=== PATIENT | female | born 1955 | race Caucasian/White ===

== ENCOUNTER 2018-12-03 12:14 | Outpatient (CLI) | payer MEDICARE, OTHER | END 2018-12-03 23:59 | disposition home or self-care (01) | LOC: LAB.N 12:14 | PROVIDERS: ATTEND Internal Medicine Cardiovascular Disease | DX: E11.29 Type 2 diabetes mellitus with other diabetic kidney complication (principal); R80.9 Proteinuria, unspecified; Z79.4 Long term (current) use of insulin | CPT/HCPCS: 36415; 82985 ==

== ENCOUNTER 2018-12-04 09:34 | Outpatient (CLI) | payer MEDICARE, OTHER ==
[2018-12-04 12:50] LABS: BUN - BLOOD UREA NITROGEN 27 mg/dL (6-20); CALCIUM 9.5 mg/dL (8.5-10.3); CARBON DIOXIDE - CO2 21 mmol/L (21-32); CHLORIDE 104 mmol/L (101-111); CHOL/HDL RATIO 6.1 (<4.4); CHOLESTEROL 212 mg/dL; CREATININE 0.8 mg/dL (0.4-1.0); GFR - MDRD 72 (>89); GLUCOSE 234 mg/dL (70-100); HDL CHOLESTEROL 35 mg/dL; SODIUM 140 mmol/L (135-145)
[2018-12-04 13:13] LABS: LDL CHOLESTEROL,DIRECT 114 mg/dL; LDLD/HDL RATIO 3.3 (<4.4)
== END 2018-12-04 23:59 ==
LOC: LAB.N 09:34
PROVIDERS: ATTEND Internal Medicine Cardiovascular Disease
DX: I25.10 Atherosclerotic heart disease of native coronary artery without angina pectoris (principal); R06.09 Other forms of dyspnea
CPT/HCPCS: 36415; 80048; 80061; 83721

== ENCOUNTER 2018-12-25 14:47 | Outpatient (CLI) | payer MEDICARE, OTHER ==
[2018-12-25 17:16] VITALS: BP 120/92
--- NOTE | 2018-12-25 17:16 | SLEEP CARE CONSULTATION ---
Information from patient questionnaire entered by Suzanna Wilkerson. I have reviewed and concur with the information entered by Suzanna Wilkerson. This document represents the service I personally performed and the decisions made by me, Yisel Paredes MD, [facility]. History of Present Illness Reason for Visit: New patient, Previously diagnosed sleep apnea, sleep apnea on CPAP therapy Chief Complaint: reports: Snoring Duration of Symptoms: 6 YEARS Usual bedtime: [id number] Time it takes to fall asleep: 60 minutes Snores at night: Yes Observed to quit breathing while asleep: Yes Sleeps alone due to snoring: No Number of times waking at night: 2-3 Reasons for waking at night: reports: Choking, Gasping for air, Bathroom Toss, Turn, or Twitch while sleeping: Yes Recalls having dreams: Yes Usually gets out of bed at: [id number] Feels refreshed in the morning: Yes Morning headache: Yes Sleepy or fatigued during the day: Yes Ever fallen asleep while driving: No Takes day naps: Yes Dreams during day naps: No Prior sleep studies: Yes Year and Where: 2014 [facility] [place], [place] Additional HPI information: I had the pleasure of seeing Mrs. Boles along with her today re garding sleep-disordered breathing. As you know, she is a 63 year old lady who was diagnosed with the central and obstructive sleep apnea-hypopnea at [facility] in [place], [place] in 2014. The AHI was 8.9 and jj oxygen saturation of 90%. She was prescribed a CPAP device set at 6 10 cmH2O. She uses the Respironics DreamStation device sporadically. The compliance data show usage in 33 out of the past 180 nights, averaging 6 hours a night. The residual AHI is 6.2 and average time in large leak per day is 8 minutes. She wears a ResMed AirFit full face mask. She got her supplies from [employer] She finds the treatment slightly beneficial. According to her , she snores lightly without the CPAP. He uses a CPAP as well. CPAP Compliance Data - Data Reviewed with Patient Average duration of nightly device use: 6h 35m Compliance rate %: 20 Current pressure setting (cmH2O): 6-10 Humidity settin Heated hose settin Subjective Initial [place] Sleepiness Scale score: 6 Past Medical History Past Medical History: reports: Diabetes, Arthritis, Asthma, GERD Social History The patient's occupation is retired. Patient is and lives in [place]. Have you smoked in the past 12 months: No Alcohol use: No Caffeine use: No Allergies and Home Medications Drug allergies reviewed: Yes Home medication list reviewed: Yes Review of Systems Weight loss over past 5 years: 35 Cardiovascular: reports: high blood pressure Respiratory: denies: shortness of breath, wheeze, sputum production, chronic cough, other Gastrointestinal: reports: heartburn Urinary: reports: incontinence Neurological: denies: headaches, seizure, head trauma, disorientation, speech dysfunction, gait or balance problems, fainting or unconsciousness, other Psychiatric: denies: Attention Deficit Hyperactivity, anxiety, depression, mood disorder, claustrophobia, other Ear/Nose/Throat: reports: wisdom teeth removed Endocrine: denies: thyroid disease, history of goiter, sluggishness, too hot or cold, excessive thirst, increased appetite, increased urination, unexplained weakness, other Musculoskeletal: reports: joint pain Immunologic: denies: sneezing, rash, itching, allergies to food or environment, other Physical Exam Vital signs obtained and entered by: Dr. Paredes Blood Pressure: 120/92 Cuff size: regular Heart Rate: 102 O2 Saturation: 95 Height: 5 ft 2 in Weight: 170 lb Body Mass Index: 31.1 BMI Classification: Obesity Class 1 Neck circumference: 14 Mood/affect: normal HEENT: No craniofacial malformation Nostrils: patent to airflow Turbinates: normal Septum: midline Mouth and throat: narrow oropharynx Soft palate: long Hard palate: normal Uvula: normal Uvula visualization: 25% Mallampati Class III Tongue: normal in size Tonsils: small Chin and jaw: normal size and position Neck: normal w/o lymphadenopathy or thyromegaly Heart: regular rate and rhythm (tachycardic) Lungs: clear bilaterally Abdomen: soft, non-tender Extremities: no edema or clubbing Neurologic: intact, no focal deficits Impression and Plan IMPRESSION: 1. Central and Obstructive Sleep Apnea-Hypopnea Syndrome, mild, with no hypoxemia. The patient has not been compliant with the treatment, mainly because of lack of supplies. There is no predisposing factor for central sleep apnea. The patient would like continue using CPAP. She is now on Medicare and will need the diagnosis reestablished because she has not been compliant. I will order another diagnostic in-laboratory polysomnography to confirm the diagnosis and its severity. The sleep-disordered breathing might also have improved because she lost almost 30 lbs since her sleep study in [place]. Plan: 1. Repeat in-laboratory polysomnography. The patient was instructed to not use her CPAP one night prior to the sleep study. 2. Attempt to lose weight. 3. Return for follow up after the sleep study. I spent 100% of this 20 minute visit face to face with the patient with greater than 50% of this was spent time counseling the patient and coordination of care.
== END 2018-12-25 14:48 | disposition home or self-care (01) ==
LOC: SC 14:47
PROVIDERS: ATTEND Internal Medicine Pulmonary Disease
DX: G47.33 Obstructive sleep apnea (adult) (pediatric) (principal); G47.61 Periodic limb movement disorder; E66.9 Obesity, unspecified; Z68.31 Body mass index [BMI] 31.0-31.9, adult
CPT/HCPCS: 99203; G0463; 99212

== ENCOUNTER 2019-02-03 19:35 | Outpatient (CLI) | payer MEDICARE, OTHER | END 2019-02-03 19:36 | disposition home or self-care (01) | LOC: SC 19:35 | PROVIDERS: ATTEND Internal Medicine Pulmonary Disease | DX: G47.33 Obstructive sleep apnea (adult) (pediatric) (principal); G47.61 Periodic limb movement disorder | CPT/HCPCS: 95810 ==

== ENCOUNTER 2019-02-26 11:19 | Outpatient (CLI) | payer MEDICARE, OTHER ==
--- NOTE | 2019-02-26 12:21 | SLEEP CARE CONSULTATION ---
Information from patient questionnaire entered by Suzanna Wilkerson. I have reviewed and concur with the information entered by Suzanna Wilkerson. This document represents the service I personally performed and the decisions made by me, Yisel Paredes MD, [facility]. History of Present Illness Previous diagnosis: Mild, Obstructive Sleep Apnea-Hypopnea Syndrome AHI: 9.0 Reason for follow up: with sleep study Equipment type: CPAP Mask style: Full face Prior sleep studies: Yes HPI additional information: HPI: Returned with her for follow up of the sleep study she had on 02/03/2019. The polysomnography showed that the patient had reduced sleep efficiency due to a prolonged awakening in the second half of the night. The sleep architecture was abnormal for sleep fragmentation and reduced amount of time spent in slow wave sleep (N3). Respiratory monitoring showed mild obstructive sleep apnea-hypopnea (AHI = 9.0) associated with frequent arousals, oxyhemoglobin desaturation and mild hypoxia (jj oxygen saturation of 87%). The respiratory events occurred almost exclusively during supine sleep (supine AHI = 18.9; non-supine = 1.06). Snore was light in intensity. There was moderate periodic leg movement of sleep contributing to the sleep fragmentation. Cardiac rhythm was normal sinus rhythm without significant arrhythmia. No abnormal behavior (parasomnia) observed during the night. The patient was informed of these findings. I explained to her that she still has mild obstructive sleep apnea-hypopnea but only when she sleeps on her back. The patient says that she does not sleep on her back at home. She has not been using her CPAP much at home because it gives her an error message regarding the memory card. CPAP Compliance Data - Data Reviewed with Patient Average duration of nightly device use: 5h 9m Compliance rate %: 9.2 Current pressure setting (cmH2O): 6-10 Humidity settin Heated hose settin Average residual AHI: 4.9 Average large leak: 1m 20s Subjective Patient concerns: reports: air blowing in eyes, nasal congestion, dry mouth, nose, throat Initial [place] Sleepiness Scale score: 6 Current [place] Sleepiness Scale score: 2 Allergies and Home Medications Drug allergies reviewed: Yes Home medication list reviewed: Yes Review of Systems Review of systems same as previous: Yes Physical Exam Weight: 165 lb Weight change since last visit: -5 Impression and Plan IMPRESSION: 1. Obstructive Sleep Apnea-Hypopnea Syndrome, mild, and positional. Because she only sleeps on her side and prone at home, she does not have to use the CPAP. She also has lost some weight. PLAN: 1. Use CPAP as needed. 2. Attempt to lose more weight. 3. Avoid sleeping supine. If unable, she needs to return for reevaluation. She also should inform her anesthesiologists and surgeons that she will have obstructive sleep apnea-hypopnea when put in supine position. She should have her CPAP ready with her in those situations. 4. Return for follow up on as needed basis. I spent 100% of this visit face to face with the patient with greater than 50% of this was spent time counseling the patient and coordination of care.
== END 2019-02-26 11:20 | disposition home or self-care (01) ==
LOC: SC 11:19
PROVIDERS: ATTEND Internal Medicine Pulmonary Disease
DX: G47.33 Obstructive sleep apnea (adult) (pediatric) (principal)
CPT/HCPCS: 99213; G0463; 99212

== ENCOUNTER 2019-09-17 12:40 | Outpatient (CLI) | payer MEDICARE, OTHER ==
--- NOTE | 2019-09-17 13:39 | DEXA Report ---
Reason: POST MENOPAUSAL Procedure Date: 09/17/2019 Accession Number: [id number] / [id number] Procedure: DEX - Dexa Spine and/or Hip CPT Code: Final Report FULL RESULT: PROCEDURE: Dexa Spine and/or Hip INDICATIONS: POST MENOPAUSAL TECHNIQUE: Dual energy x-ray absorptiometry (DXA) was performed on a Ideagen System. Regions measured are the AP Spine, femoral neck, and if needed forearm. COMPARISON: None. FINDINGS: Lumbar Spine: Bone Mineral Density 1.143 g/cm/cm,T score 2.0, nornal [place] Hip: Bone Mineral Density 1.042 g/cm/cm,T score 0.3, normal Left Femoral Neck: Bone Mineral Density 0.822 g/cm/cm, T score -1.6, osteopenia (T score greater or equal to -1.0: NORMAL) (T score from -1.1 to -2.4: OSTEOPENIA) (T score less than or equal to -2.5 to: OSTEOPOROSIS) Impression: Osteopenia in the left femoral neck. Patients with diagnosis of osteoporosis or osteopenia should have regular bone mineral density assessment. For those eligible for Medicare, routine testing is allowed once every 2 years. Testing frequency can be increased for patients who have rapidly progressing disease or for those who are receiving medical therapy to restore bone mass. Reviewed by: Mariluz Alanis MD on 09/17/2019 1:37 PM PDT Approved by: Mariluz Alanis MD on 09/17/2019 1:37 PM PDT Station ID: [id number]
== END 2019-09-17 12:41 | disposition home or self-care (01) ==
LOC: DI 12:40
PROVIDERS: ATTEND Nurse Practitioner Family
DX: M85.88 Other specified disorders of bone density and structure, other site (principal)
CPT/HCPCS: 77080

== ENCOUNTER 2019-09-17 12:41 | Outpatient (CLI) | payer MEDICARE, OTHER ==
--- NOTE | 2019-09-18 09:13 | Mammography Report ---
BILATERAL DIGITAL SCREENING MAMMOGRAM 3D/2D: 09/17/2019 CLINICAL: Routine screening. Comparison is made to exams dated: 03/22/2018 mammogram, 02/23/2017 mammogram, 01/01/2016 mammogram, a nd 11/12/2014 mammogram - [facility]. The tissue of both breasts is predominantly f atty. No significant masses, calcifications, or other findings are seen in either breast. There has been no significant interval change. IMPRESSION: NEGATIVE There is no mammographic evidence of malignancy. A 1 year screening mammogram is recommended. This exam was interpreted at Station ID: [id number]. NOTE: For mammograms, a report in lay terms will be sent to the patient. Approximately 15% of breast malignancies will not be visualized mammographically. In the management of a palpable breast mass, a negative mammogram must not discourage biopsy of a clinically suspicious lesion. Electronically Signed By: Jhoan Carmona M.D. ar/[email or web address]:09/17/2019 17:23:18 ACR BI-RADS Category 1: Negative [id number] PARENCHYMAL PATTERN: (F) - The breast(s) demonstrate(s) diffuse fatty replacement. BI-RADS CATEGORY: (1) - 1 RECOMMENDATION: (ANNUAL) - Recommend routine annual screening mammography. [id number] 1 year screening LATERALITY: (B)
== END 2019-09-17 12:42 | disposition home or self-care (01) ==
LOC: DI 12:41
DX: Z12.31 Encounter for screening mammogram for malignant neoplasm of breast (principal)
CPT/HCPCS: 77063; 77067

== ENCOUNTER 2019-11-14 10:45 | Inpatient (IN) | payer MEDICARE, OTHER ==
[2019-11-14 11:50] LABS: BASOPHILS % (AUTO) 0.4 %; EOSINOPHILS % (AUTO) 0.8 %; HGB - HEMOGLOBIN 14.5 g/dL (12.0-16.0); LYMPHOCYTES # (AUTO) 1.3 10^3/uL (1.5-3.5); LYMPHOCYTES % (AUTO) 25.8 %; MEAN CORPUSCULAR HEMOGLOBIN 30.3 pg (27.0-31.0); MEAN CORPUSCULAR HGB CONC 34.3 g/dL (32.0-36.0); MEAN CORPUSCULAR VOLUME 88.3 fL (81.0-99.0); MEAN PLATELET VOLUME 10.4 fL (7.9-10.8); MONOCYTES # (AUTO) 0.3 10^3/uL (0.0-1.0); MONOCYTES % (AUTO) 5.6 %; NEUTROPHILS # (AUTO) 3.2 10^3/uL (1.5-6.6); NEUTROPHILS % (AUTO) 66.6 %; PLT - PLATELET COUNT 188 10^3/uL (130-450); RED BLOOD COUNT 4.79 10^6/uL (4.20-5.40); RED CELL DISTRIBUTION WIDTH 12.2 % (12.0-15.0); WHITE BLOOD COUNT 4.8 x10^3/uL (4.8-10.8)
[2019-11-14] MEDS ORDERED: IOVERSOL 320 100 ML VIAL IVP ONE ×2 (11:54→17:35)
[2019-11-14 11:56] LABS: ALBUMIN 3.9 g/dL (3.2-5.5); CALCIUM 9.5 mg/dL (8.5-10.3); CREATININE 0.8 mg/dL (0.4-1.0); TOTAL PROTEIN 7.7 g/dL (6.7-8.2)
--- NOTE | 2019-11-14 12:06 | ED Physician Documentation ---
PD HPI FOCAL NEURO - Stated complaint Stated Complaint: POSS STROKE - Chief complaint Chief Complaint: Neuro - History obtained from History obtained from: Patient, Family - History of Present Illness Timing - onset: How many hours ago (32) Timing - duration: Hours (32) Timing - details: Abrupt onset Severity of deficit: Moderate Weakness: Face, Arm, Hand, Leg, Left Numbness: Face, Arm, Hand, Leg, Left Associated symptoms: No: Headache, Nausea / vomiting, Seizure, Syncope, Fall, Head injury, Chest pain, Neck pain, Back pain Baseline status: positive: A&OX3, ambulatory, indep Recently seen: Not recently seen - Additional information Additional information: Female presents the emergency department complaint of left-sided weakness for the past 32 hours. Difficulty ambulating secondary to weakness. Feels like she cannot control her left hand. Took aspirin this morning. No history of stroke. No recent illness. No recent trauma. Nothing makes it better or worse Review of Systems Ten Systems: 10 systems reviewed and negative Constitutional: denies: Fever, Chills Ears: denies: Ear pain Nose: denies: Rhinorrhea / runny nose, Congestion Cardiac: denies: Chest pain / pressure Respiratory: denies: Cough GI: denies: Abdominal Pain, Nausea, Vomiting, Diarrhea Skin: denies: Rash Musculoskeletal: denies: Neck pain, Back pain Neurologic: denies: Headache PD PAST MEDICAL HISTORY - Past Medical History Past Medical History: Yes Cardiovascular: Hypertension, High cholesterol Respiratory: Asthma Neuro: Migraines, Peripheral neuropathy Endocrine/Autoimmune: Type 2 diabetes GI: GERD HEENT: None Psych: None Musculoskeletal: Osteoarthritis, Fibromyalgia - Past Surgical History Past Surgical History: Yes Ortho: Carpal Tunnel surgery, Other /[employer]: section - Present Medications Home Medications: Ambulatory Orders Medication Instructions Recorded Confirmed Albuterol Oral Soln 2 mg PO Q6H PRN 11/14/19 11/14/19 Albuterol Sulfate [Proair Hfa 1 - 2 puffs INH Q4H PRN 11/14/19 11/14/19 Inhaler] Aspirin 81 mg PO DAILY 11/14/19 11/14/19 Atorvastatin Calcium [Lipitor] 80 mg PO DAILY 11/14/19 11/14/19 Dulaglutide [Trulicity] 1.5 mg SQ OAW 11/14/19 11/14/19 Empagliflozin [Jardiance] 25 mg PO DAILY 11/14/19 11/14/19 Fenofibrate,Micronized 130 mg PO DAILY 11/14/19 11/14/19 [Fenofibrate] Fluticasone Propionate [Flovent 250 mcg IH BID PRN 11/14/19 11/14/19 Diskus] Gabapentin 100 mg PO DAILY 11/14/19 11/14/19 Gabapentin 300 mg PO DAILY PM 11/14/19 11/14/19 Insulin Regular, Human [Humulin R] 30 units SQ AC 11/14/19 11/14/19 Leflunomide 20 mg PO DAILY 11/14/19 11/14/19 Lisinopril [Prinivil] 10 mg PO DAILY 11/14/19 11/14/19 Montelukast [Singulair] 10 mg PO QPM 11/14/19 11/14/19 Omeprazole 20 mg PO DAILY 11/14/19 11/14/19 Secukinumab [Cosentyx Pen] 150 mg SQ ONCE 11/14/19 11/14/19 metFORMIN [Glucophage] 1,000 mg PO BIDWM 11/14/19 11/14/19 - Allergies Allergies/Adverse Reactions: Allergies Allergy/AdvReac Type Severity Reaction Status Date / Time Sulfa (Sulfonamide Allergy Rash Verified 11/14/19 10:58 Antibiotics) - Social History Does the pt smoke?: No Smoking Status: Never smoker Does the pt drink ETOH?: No Does the pt have substance abuse?: No - Immunizations Immunizations are current?: Yes - POLST Patient has POLST: No PD ED PE NORMAL - Vitals Vital signs reviewed: Yes - General General: Alert and oriented X 3, No acute distress, Well developed/nourished - HEENT HEENT: PERRL, Ears normal, Moist mucous membranes, Pharynx benign - Neck Neck: Supple, no meningeal sign - Cardiac Cardiac: RRR - Respiratory Respiratory: No respiratory distress, Clear bilaterally - Abdomen Abdomen: Soft, Non tender, Non distended - Back Back: No spinal TTP - Derm Derm: Warm and dry - Extremities Extremities: No deformity, No edema - Neuro Neuro: Alert and oriented X 3, it business analyst 2-12 intact - Psych Psych: Normal mood, Normal affect NIHSS - Time Time: 11:20 - Level of Consciousness Level of consciousness: (0) Alert, Keenly responsive LOC Questions: (0) Answers both Q's correct LOC Commands: (0) Performs both correctly - Gaze Best Gaze: (0) Normal - Visual Visual: (0) No loss - Facial Palsy Facial Palsy: (0) Normal, symmetrical movement - Motor Arms (both separate) Motor Arm (right): (0) No drift Motor Arm (left): (1) Drift - Motor Legs (both separate) Motor Leg (right): (0) No drift Motor Leg (left): (2) Some effort against gravity - Limb Ataxia Limb Ataxia: (0) Absent - Sensory Sensory: (1) Hgpm-aa-naccucrw loss - Best Language Best Language: (0) No aphasia - Dysarthria Dysarthria: (1) Scvn-sj-lsduomak dysarthria - Extinction and Inattention (formally neg Extinction and inattention: (0) No abnormality - Total Score/Results Total Score/Result: 5 Results - Vitals Vitals: Vital Signs - 24 hr 11/14/19 11/14/19 11/14/19 10:51 11:09 11:41 Temperature 36.6 C Heart Rate 86 86 86 Respiratory 17 17 25 H Rate Blood Pressure 169/108 H 154/85 H 141/80 H O2 Saturation 98 97 97 11/14/19 11/14/19 12:02 12:53 Temperature Heart Rate 80 84 Respiratory 16 14 Rate Blood Pressure 151/80 H 129/78 O2 Saturation 96 98 Oxygen O2 Source Room air - EKG (time done) 1154 Rate: Rate (enter#) (79) Rhythm: NSR [place]: Normal Intervals: Normal [place] QRS: LVH Ischemia: Normal ST segments - Labs Labs: Laboratory Tests 11/14/19 11/14/19 11/14/19 11:00 11:00 11:40 WBC 4.8 RBC 4.79 Hgb 14.5 Hct 42.3 MCV 88.3 MCH 30.3 MCHC 34.3 RDW 12.2 Plt Count 188 MPV 10.4 Neut # (Auto) 3.2 Lymph # (Auto) 1.3 L [place] # (Auto) 0.3 Eos # (Auto) 0.0 Baso # (Auto) 0.0 Absolute Nucleated RBC 0.00 Nucleated RBC % 0.0 Sodium 135 Potassium 4.1 Chloride 103 Carbon Dioxide 21 Anion Gap 11.0 BUN 18 Creatinine 0.8 Estimated GFR (MDRD) 72 L Glucose 431 H Calcium 9.5 Total Bilirubin 1.0 AST 17 ALT 19 Alkaline Phosphatase 94 Troponin I High Sens 5.5 Total Protein 7.7 Albumin 3.9 Globulin 3.8 Albumin/Globulin Ratio 1.0 Lipase 37 Urine Color Urine Clarity Urine pH Ur Specific [place] Urine Protein Urine Glucose (UA) Urine Ketones Urine Occult Blood Urine Nitrite Urine Bilirubin Urine Urobilinogen Ur Leukocyte Esterase Ur Microscopic Review Urine Culture Comments 11/14/19 12:00 WBC RBC Hgb Hct MCV MCH MCHC RDW Plt Count MPV Neut # (Auto) Lymph # (Auto) [place] # (Auto) Eos # (Auto) Baso # (Auto) Absolute Nucleated RBC Nucleated RBC % Sodium Potassium Chloride Carbon Dioxide Anion Gap BUN Creatinine Estimated GFR (MDRD) Glucose Calcium Total Bilirubin AST ALT Alkaline Phosphatase Troponin I High Sens Total Protein Albumin Globulin Albumin/Globulin Ratio Lipase Urine Color YELLOW Urine Clarity CLEAR Urine pH 5.5 Ur Specific [place] 1.010 Urine Protein TRACE Urine Glucose (UA) >=1000 H Urine Ketones NEGATIVE Urine Occult Blood NEGATIVE Urine Nitrite NEGATIVE Urine Bilirubin NEGATIVE Urine Urobilinogen 0.2 (NORMAL) Ur Leukocyte Esterase NEGATIVE Ur Microscopic Review NOT INDICATED Urine Culture Comments NOT INDICATED - Rads (name of study) angio head Radiology: Prelim report reviewed, EMP read contemporaneously, See rad report angio neck Radiology: Prelim report reviewed, EMP read contemporaneously, See rad report PD MEDICAL DECISION MAKING - ED course Complexity details: reviewed results, re-evaluated patient, considered differential, d/w patient ED course: No acute abnormality on angiogram of the head or neck. Will admit for stroke and further care. Took ASA today. D/w Dr. Valenzuela who accepts. This document was made in part using voice recognition software. While efforts are made to proofread this document, sound alike and grammatical errors may occur. Departure - Departure Disposition: 66 [facility] DC/Xfer Clinical Impression: Stroke Qualifiers: CVA mechanism: unspecified Qualified Code(s): I63.9 - Cerebral infarction, unspecified Condition: Good Discharge Date/Time: 11/14/19 14:14
[2019-11-14 12:19] LABS: BILIRUBIN,URINE NEGATIVE (NEGATIVE); GLUCOSE, URINE (UA) >=1000 mg/dL (NEGATIVE); KETONES,URINE (UA) NEGATIVE (NEGATIVE); LEUKOCYTE ESTERASE, URINE NEGATIVE (NEGATIVE); NITRITE,URINE NEGATIVE (NEGATIVE); OCCULT BLOOD,URINE NEGATIVE (NEGATIVE); PH,URINE 5.5 PH (5.0-7.5); PROTEIN,URINE TRACE mg/dL (NEGATIVE); UROBILINOGEN,URINE 0.2 (NORMAL) E.U./dL (NORMAL)
[2019-11-14 12:20] LABS: CLARITY,URINE CLEAR (CLEAR)
--- NOTE | 2019-11-14 12:44 | CT Report ---
PROCEDURE: ANGIO HEAD W/WO INDICATIONS: L sided facial droop CONTRAST: IV CONTRAST: Optiray 320 ml: 80 PO CONTRAST: *NO PO CONTRAST TECHNIQUE: Precontrast 4.5 mm thick angled axial sections acquired from the foramen magnum to the vertex. Afte r the administration of intravenous contrast, 1 mm thick sections acquired through the [place] of [place] is. Postcontrast 4.5 mm thick sections then re-acquired from the foramen magnum to the vertex. 3-di mensional ngxpzyk-mwehibrea-fewsrzeliw (MIP) and/or volume rendering reformats were acquired of the c entral intracranial vasculature. For radiation dose reduction, the following was used: automated ex posure control, adjustment of mA and/or kV according to patient size. COMPARISON: Correlation is made with the accompanying neck CT angiogram, 11/14/2019 FINDINGS: Image quality: Diagnostic, with note made of motion artifact. Anterior circulation: Intracranial internal carotid arteries are normal in size and flow. The flow within the paired anterior cerebral arteries is normal and symmetric. The flow within the middle cer ebral arteries is normal and symmetric. The anterior communicating artery is seen. No aneurysms are seen. Posterior circulation: Visualized portions of the vertebral arteries demonstrate normal caliber, and join to form a normal appearing basilar artery. Flow within the posterior cerebral arteries is norm al and symmetric. No aneurysms are seen. CSF spaces: Ventricles are normal in size and shape. Basal cisterns are patent. No extra-axial flu id collections. Brain: No midline shift. No intracranial bleeds or masses. Michael-white matter interface appears int act. In this patient with this given history, scrutiny is given to course of the facial nerves, incl uding within the parotid glands. No masses or other cause of facial paralysis is identified. Skull and face: Calvarium and facial bones appear intact, without suspicious lesions. Sinuses: Visualized sinuses and mastoids are clear. IMPRESSION: No imaging explanation is found for the patient's presenting symptoms. No significant intracranial abnormality is seen. No significant intracranial arterial abnormalities are seen. If there is strong clinical concern for a stroke, please consider a dedicated brain MRI for further e valuation (assuming that there is no contraindication to MRI). Reviewed by: Jarvis Bonds MD on 11/14/2019 11:43 AM GERALDINE Approved by: Jarvis Bonds MD on 11/14/2019 11:43 AM GERALDINE Station ID: [id number]
--- NOTE | 2019-11-14 12:46 | CT Report ---
PROCEDURE: ANGIO NECK W INDICATIONS: L sided facial droop, L neck pain CONTRAST: IV CONTRAST: Optiray 320 ml: 80 PO CONTRAST: *NO PO CONTRAST TECHNIQUE: After the administration of intravenous contrast, 1.5 mm axial sections acquired from the aortic arch to the [place] of [place]. Coronal 3-D maximum intensity projection (MIP) and/or volume rendering ref ormats were then performed. For radiation dose reduction, the following was used: automated exposur e control, adjustment of mA and/or kV according to patient size. COMPARISON: Correlation is made with the accompanying head CT angiogram, 11/14/2019 FINDINGS: Image quality: Excellent. Carotid system: The great vessels demonstrate a conventional anatomy as they arise from the aortic a rch. The origins of the common carotid arteries appear patent. The common carotid arteries demonstr ate normal calibers and courses. The bifurcation regions appear normal bilaterally. The internal ca rotid arteries demonstrate normal caliber and course. Posterior circulation: The origins of the vertebral arteries appear patent. The more superior porti ons of the vertebral arteries demonstrate normal course and caliber. They join to form a normal appe aring basilar artery. Soft tissues: Visualized neck soft tissues demonstrate no suspicious abnormalities. The thyroid gla nd is normal in size. Bones: No suspicious bony lesions. Visualized cervical spine appears normally aligned. Age-approp riate degenerative changes are seen. IMPRESSION: No hemodynamically significant stenosis can be seen within the arteries of the neck. A cause of left-sided neck pain is not seen. No findings of dissection are seen. The estimate of stenosis included in the report of the imaging study was calculated using the NASCET method Reviewed by: Jarvis Bonds MD on 11/14/2019 11:44 AM GERALDINE Approved by: Jarvis Bonds MD on 11/14/2019 11:44 AM GERALDINE Station ID: [id number]
[2019-11-14] MEDS ORDERED: oxyCODONE 5 MG TABLET PO PRN (13:16)
[2019-11-14] MEDS ORDERED: ONDANSETRON ODT 4 MG TABLET TL PRN (13:16)
[2019-11-14] MEDS ORDERED: ONDANSETRON 4 MG/2 ML VIAL IVP PRN (13:16)
[2019-11-14] MEDS ORDERED: SODIUM CHLORIDE FLUSH 0.9% 10 ML SYRINGE IVP PRN (13:16)
[2019-11-14] MEDS ORDERED: ACETAMINOPHEN 325 MG TABLET PO PRN (13:19)
[2019-11-14] MEDS ORDERED: CLOPIDOGREL 300 MG TABLET PO STA (13:31)
[2019-11-14] MEDS ORDERED: ASPIRIN CHEW 81 MG TABLET PO STA (13:37)
[2019-11-14] MEDS ORDERED: INSULIN ASPART 300 UNIT/3 ML PEN SUBQ ONE (14:16)
[2019-11-14] MEDS ORDERED: ALBUTEROL NEB 2.5 MG/3 ML INH PRN (14:18)
--- NOTE | 2019-11-14 14:20 | HISTORY & PHYSICAL EXAMINATION ---
Chief Complaint - Chief Complaint Chief Complaint: left side weakness and numbness. History of Present Illness - Admitted From Admitted From:: ER - History Obtained From Records Reviewed: [facility] History obtained from: pt - History of Present Illness HPI Comment/Other: This is a 64-years old female with a past medical history significant for Hypert ension, hyperlipidemia, asthma, migraines, Peripheral neuropathy, type II diabetic, GERD, Who presented ER complaint left-sided weakness and numbness. She report Monday yesterday about 2:30 AM, she found herself left-sided weakness and feel also numbness. When she tried to go to the bathroom she cannot walk, she needed her to give her walker. Now she feels some recover and better, strength is better and she can barely walk. She denies history of stroke. She denies headache and vision change. Her CTA of head and neck was unremarkable. Routine laboratory tests do show she has hyperglycemia with a sugar 430. She had elevated blood pressure in the beginning, Otherwise she is hemodynamic stable. Patient is admitted for stroke evaluation and treatment. 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 Her mother is still alive with diabetic and arthritis. From his father side, her grandfather from stroke, Grandmother from heart attack. She had a 3 daughter, all healthy Living arrangement: At home Living Situation: With spouse/s.o. Social History Notes: Patient denies any history of cigarette smoking, alcohol or drug issue. She was moved to [facility] 2 years ago from [place]. She is currently living at [facility] with her . - POLST Patient has POLST: No Meds/Allgy - Home Medications Home Medications: Ambulatory Orders Medication Instructions Recorded Confirmed Albuterol Oral Soln 2 mg PO Q6H PRN 11/14/19 11/14/19 Albuterol Sulfate [Proair Hfa 1 - 2 puffs INH Q4H PRN 11/14/19 11/14/19 Inhaler] Aspirin 81 mg PO DAILY 11/14/19 11/14/19 Atorvastatin Calcium [Lipitor] 80 mg PO DAILY 11/14/19 11/14/19 Dulaglutide [Trulicity] 1.5 mg SQ OAW 11/14/19 11/14/19 Empagliflozin [Jardiance] 25 mg PO DAILY 11/14/19 11/14/19 Fenofibrate,Micronized 130 mg PO DAILY 11/14/19 11/14/19 [Fenofibrate] Fluticasone Propionate [Flovent 250 mcg IH BID PRN 11/14/19 11/14/19 Diskus] Gabapentin 100 mg PO DAILY 11/14/19 11/14/19 Gabapentin 300 mg PO DAILY PM 11/14/19 11/14/19 Insulin Regular, Human [Humulin R] 30 units SQ AC 11/14/19 11/14/19 Leflunomide 20 mg PO DAILY 11/14/19 11/14/19 Lisinopril [Prinivil] 10 mg PO DAILY 11/14/19 11/14/19 Montelukast [Singulair] 10 mg PO QPM 11/14/19 11/14/19 Omeprazole 20 mg PO DAILY 11/14/19 11/14/19 Secukinumab [Cosentyx Pen] 150 mg SQ ONCE 11/14/19 11/14/19 metFORMIN [Glucophage] 1,000 mg PO BIDWM 11/14/19 11/14/19 - Allergies Allergies/Adverse Reactions: Allergies Allergy/AdvReac Type Severity Reaction Status Date / Time Sulfa (Sulfonamide Allergy Rash Verified 11/14/19 10:58 Antibiotics) Review of Systems - Constitutional Constitutional: reports: Weakness. denies: Fatigue, Fever, Chills, Malaise, Poor appetite, Diaphoresis, Night sweats - Eyes Eyes: denies: Pain, Blurred vision, Spots in vision, Field loss, Vision loss, Dipolpia - Ears, Nose & Throat Ears, Nose & Throat: denies: Ear pain, Hearing aids, Tinnitus, Nasal pain, Nasal discharge, Nosebleeds, Nasal congestion, Dentures, Sore throat, Mouth lesions, Bleeding gums - Cardiovascular Cariovascular: denies: Irregular heart rate, Palpitations, Chest pain, Edema, Lightheadedness, Syncope, Exertional dyspnea, Decr. exercise tolerance - Respiratory Respiratory: denies: Cough, Sputum production, Wheezing, Snoring, Hemoptysis, Orthopnea, SOB at rest, SOB with exertion - Gastrointestinal Gastrointestinal: denies: Abdominal pain, Abdominal distention, Diarrhea, Rectal bleeding, Black stools, Bloody stools, Nausea, Vomiting, Adrian blood emesis, Coffee grounds emesis, Reflux/heartburn - Genitourinary Genitourinary: denies: Dysuria, Frequency, Urgency, Hematuria, Incontinence, Flank pain, Nocturia, Urethral discharge - Musculoskeletal Musculoskeletal: denies: Muscle pain, Back pain, Limited range of motion, Muscle weakness, Gout - Integumentary Integumentary: denies: Rash, Lesions, Dryness, Lumps, Pigment changes - Neurological Neurological: reports: Focal weakness, Numbness, Abnormal gait, Incoordination. denies: General weakness, Headache, Dizziness, Memory problems, Pre-existing deficit, Seizures, Slurred speech - Psychiatric Psychiatric: denies: Depression, Anxiety, Suicidal, Delusions, Hallucinations, Homicidal - Endocrine Endocrine: denies: Polyuria, Polydypsia, Polyphagia - Hematologic/Lymphatic Hematologic/Lymphatic: denies: Anemia, Petechiae, Blood clots, Lymphadenopathy, Bleeding tendencies Exam - Vital Signs Vital Signs: Vital Signs x48h Temp Pulse Pulse Resp BP BP Pulse Ox 11/14/19 14:07 36.3 C L 76 16 126/75 98 11/14/19 13:38 77 14 154/95 H 96 11/14/19 12:53 84 14 129/78 98 11/14/19 12:02 80 16 151/80 H 96 11/14/19 11:41 86 25 H 141/80 H 97 11/14/19 11:09 86 17 154/85 H 97 11/14/19 10:51 36.6 C 86 17 169/108 H 98 - Physical Exam General Appearance: positive: No acute distress, Alert. negative: Lethargic Eyes Bilateral: positive: Normal inspection, PERRL, No lid inflammation ENT: positive: ENT inspection nml, No signs of dehydration. negative: Purulent nasal drainage Neck: positive: Nml inspection, Thyroid nml, Trachea midline. negative: Thyromegaly, Stiff neck, Tracheal deviation Respiratory: positive: Chest non-tender, No respiratory distress, Breath sounds nml. negative: Wheezes, Rales, Rhonchi Cardiovascular: positive: Regular rate & rhythm, No murmur. negative: Irregula rly irregular, Tachycardia, Bradycardia, Systolic murmur, Diastolic murmur Peripheral Pulses: positive: 2+ Abdomen: positive: Non-tender, No organomegaly, Nml bowel sounds, No distention. negative: Tenderness, Guarding, Rebound Back: positive: Nml inspection. negative: CVA tenderness (R), CVA tenderness (L) Skin: positive: Color nml, No rash, Warm, Dry. negative: Cyanosis, Diaphoresis, Pallor Extremities: positive: Non-tender, Nml appearance. negative: Full ROM, Calf tenderness Neurologic/Psychiatric: positive: Oriented x3, Mood/affect nml, Weakness, Sensory loss. negative: Facial droop, Slurred/abnml speech, Depressed mood/affect Sepsis Event Note (H) - Evaluation Current Stage of Sepsis: Ruled out Conclusion/Plan - Problem List (1) Stroke Conclusion/Plan: Patient still present left-sided weakness on upper and lower extremity. Patient reported she had a slurring speech but right now slurring speech is resolved. She reported she has no issue for swallowing. This happened on yesterday around 2:30 AM. CTA of head and neck is unremarkable. Order MRI of the brain and echo Started on aspirin plus Plavix, Lipitor, Intravenous IV fluids, allow rise of blood pressure. Physical therapist and occupational therapist for patient Continue vital signs and laboratory including lipid panel test for patient Qualifiers: CVA mechanism: unspecified Qualified Code(s): I63.9 - Cerebral infarction, unspecified (2) Type 2 diabetes mellitus Conclusion/Plan: Patient has significantly hyperglycemia with history of diabetic 2. Started with a sliding scale, Check A1c, start with hypoglycemia protocol. (3) HTN (hypertension) Conclusion/Plan: Patient has a history of hypertension, hold his blood pressure for patient had a stroke. Continue vital signs monitor (4) HLD (hyperlipidemia) Conclusion/Plan: Patient has history of hyperlipidemia, will start with Lipitor 80 mg daily (5) Asthma Conclusion/Plan: Stable, we will start patient home medication, Albuterol INH as needed (6) Peripheral neuropathy Conclusion/Plan: Patient has a history of peripheral neuropathy, we will resume patient home medication gabapentin - Lab Results Fish Bones: 11/14/19 11:00 11/14/19 11:00 Core Measures - Anticipated LOS I expect patient to be DC'd or transferred within 96 hours.: Yes - DVT/VTE - Prophylaxis VTE/DVT Device ordered at admit?: Yes VTE/DVT Prophylaxis med ordered at admit?: Yes
--- NOTE | 2019-11-14 15:55 | PHARMACY PROGRESS NOTE ---
- Best Possible Medication History Admit Date and Time: 11/14/19 1316 Processed by: Nursing Medication History completed: Yes As the person ultimately responsible for medication therapy, providers are able to order a medication from an existing home medication list in [facility] via the "Reconcile Routine" prior to Confirmation of that medication by media production support manager. Such practice is discouraged except when the physician, in their clinical judgment, deems that a medical need exists for a medication without regard to previous use.
[2019-11-14] MEDS ORDERED: ASPIRIN 325 MG TABLET PO SCH (17:00)
[2019-11-14] MEDS: SODIUM CHLORIDE 0.9% 1,000 ML IV SCH (17:25)
--- NOTE | 2019-11-14 17:27 | HISTORY & PHYSICAL EXAMINATION ---
Chief Complaint - Chief Complaint Chief Complaint: left weakness and numbness History of Present Illness - History of Present Illness HPI Comment/Other: Pt brought in via spouse for Left sided weakness and slurred speach onset 0230 this am when she got up to use the restroom and leg gave out. Also c/o numbness from Left hip down. 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 - POLST Patient has POLST: No Meds/Allgy - Home Medications Home Medications: Ambulatory Orders Medication Instructions Recorded Confirmed Albuterol Oral Soln 2 mg PO Q6H PRN 11/14/19 11/14/19 Albuterol Sulfate [Proair Hfa 1 - 2 puffs INH Q4H PRN 11/14/19 11/14/19 Inhaler] Aspirin 81 mg PO DAILY 11/14/19 11/14/19 Atorvastatin Calcium [Lipitor] 80 mg PO DAILY 11/14/19 11/14/19 Dulaglutide [Trulicity] 1.5 mg SQ OAW 11/14/19 11/14/19 Empagliflozin [Jardiance] 25 mg PO DAILY 11/14/19 11/14/19 Fenofibrate,Micronized 130 mg PO DAILY 11/14/19 11/14/19 [Fenofibrate] Fluticasone Propionate [Flovent 250 mcg IH BID PRN 11/14/19 11/14/19 Diskus] Gabapentin 100 mg PO DAILY 11/14/19 11/14/19 Gabapentin 300 mg PO DAILY PM 11/14/19 11/14/19 Insulin Regular, Human [Humulin R] 30 units SQ AC 11/14/19 11/14/19 Leflunomide 20 mg PO DAILY 11/14/19 11/14/19 Lisinopril [Prinivil] 10 mg PO DAILY 11/14/19 11/14/19 Montelukast [Singulair] 10 mg PO QPM 11/14/19 11/14/19 Omeprazole 20 mg PO DAILY 11/14/19 11/14/19 Secukinumab [Cosentyx Pen] 150 mg SQ ONCE 11/14/19 11/14/19 metFORMIN [Glucophage] 1,000 mg PO BIDWM 11/14/19 11/14/19 - Allergies Allergies/Adverse Reactions: Allergies Allergy/AdvReac Type Severity Reaction Status Date / Time Sulfa (Sulfonamide Allergy Rash Verified 11/14/19 10:58 Antibiotics) Exam - Vital Signs Vital Signs: Vital Signs x48h Temp Pulse Pulse Resp BP BP Pulse Ox 11/14/19 14:07 36.3 C L 76 16 126/75 98 11/14/19 13:38 77 14 154/95 H 96 11/14/19 12:53 84 14 129/78 98 11/14/19 12:02 80 16 151/80 H 96 11/14/19 11:41 86 25 H 141/80 H 97 11/14/19 11:09 86 17 154/85 H 97 11/14/19 10:51 36.6 C 86 17 169/108 H 98 Conclusion/Plan - Lab Results Fish Bones: 11/14/19 11:00 11/14/19 11:00
[2019-11-14] MEDS: INSULIN ASPART 300 UNIT/3 ML PEN SUBQ SCH ×2 (17:28→21:24)
[2019-11-14] MEDS: SODIUM CHLORIDE FLUSH 0.9% 10 ML SYRINGE IVP SCH ×2 (17:28→23:57)
[2019-11-14 19:58] LABS: HEMOGLOBIN A1c% 11.6 % (4.27-6.07)
[2019-11-14] MEDS ORDERED: GABAPENTIN 300 MG CAPSULE PO SCH (21:00)
[2019-11-14] MEDS ORDERED: ATORVASTATIN 40 MG TABLET PO SCH (21:00)
[2019-11-14] MEDS ORDERED: MONTELUKAST 10 MG TABLET PO SCH (21:00)
[2019-11-15] MEDS: SODIUM CHLORIDE 0.9% 1,000 ML IV SCH (04:09)
[2019-11-15 06:02] LABS: BASOPHILS % (AUTO) 0.4 %; EOSINOPHILS # (AUTO) 0.1 10^3/uL (0.0-0.7); EOSINOPHILS % (AUTO) 1.7 %; LYMPHOCYTES # (AUTO) 2.1 10^3/uL (1.5-3.5); LYMPHOCYTES % (AUTO) 39.6 %; MEAN CORPUSCULAR HEMOGLOBIN 29.5 pg (27.0-31.0); MEAN CORPUSCULAR HGB CONC 32.8 g/dL (32.0-36.0); MEAN CORPUSCULAR VOLUME 89.8 fL (81.0-99.0); MEAN PLATELET VOLUME 10.2 fL (7.9-10.8); MONOCYTES # (AUTO) 0.3 10^3/uL (0.0-1.0); MONOCYTES % (AUTO) 5.9 %; NEUTROPHILS # (AUTO) 2.7 10^3/uL (1.5-6.6); NEUTROPHILS % (AUTO) 52.2 %; PLT - PLATELET COUNT 175 10^3/uL (130-450); RED BLOOD COUNT 4.41 10^6/uL (4.20-5.40); RED CELL DISTRIBUTION WIDTH 12.7 % (12.0-15.0); WHITE BLOOD COUNT 5.3 x10^3/uL (4.8-10.8)
[2019-11-15 06:22] LABS: ALBUMIN 3.3 g/dL (3.2-5.5); CALCIUM 9.1 mg/dL (8.5-10.3); CREATININE 0.9 mg/dL (0.4-1.0); TOTAL PROTEIN 6.5 g/dL (6.7-8.2)
[2019-11-15 06:26] LABS: CHOL/HDL RATIO 6.8 (<4.4); CHOLESTEROL 260 mg/dL; HDL CHOLESTEROL 38 mg/dL; LDL CHOLESTEROL,CALCULATED 175 mg/dL; LDL/HDL RATIO 4.6 (<4.4); VLDL CHOLESTEROL 47 mg/dL
[2019-11-15] MEDS ORDERED: INSULIN GLARGINE 300 UNIT/3 ML PEN SUBQ SCH ×2 (08:00)
[2019-11-15] MEDS: INSULIN ASPART 300 UNIT/3 ML PEN SUBQ SCH ×2 (08:13→11:35)
[2019-11-15] MEDS: SODIUM CHLORIDE FLUSH 0.9% 10 ML SYRINGE IVP SCH (08:15)
--- NOTE | 2019-11-15 08:45 | MRI Report ---
PROCEDURE: Brain W/O INDICATIONS: hemiplegia TECHNIQUE: Noncontrast axial T1 spin echo, axial T2 fast spin echo, sagittal and axial FLAIR, coronal T2 fast sp in echo, axial gradient echo, axial diffusion and ADC through the brain. COMPARISON: CT angioma head and neck 11/14/2019 FINDINGS: Image quality: Excellent. CSF Spaces: Basal cisterns are patent. No extra-axial fluid collections. Ventricles are normal in size and shape. Brain: No intracranial masses or hemorrhage. Michael/white matter interface is normal. Mild to moderat e T2/FLAIR hyperintensities are present within the periventricular and subcortical white matter. Ther e is restricted diffusion within the right aspect of the carol with corresponding hypointense ADC sign al and hyperintense T2/FLAIR signal abnormalities. No superimposed hemorrhage. No chronic ischemic in sults. Normal intravascular flow voids are present. Skull and face: Calvarium has normal marrow signal. Orbits appear normal. Sinuses: Sinuses and mastoids are clear. IMPRESSION: 1. Acute/subacute ischemia within the right carol without superimposed hemorrhage. 2. Mild to moderate chronic microvascular ischemic changes. Reviewed by: Mariluz Alanis MD on 11/15/2019 8:44 AM PDT Approved by: Mariluz Alanis MD on 11/15/2019 8:44 AM PDT Station ID: [id number]
[2019-11-15] MEDS ORDERED: CLOPIDOGREL 75 MG TABLET PO SCH (09:00)
[2019-11-15] MEDS ORDERED: ASPIRIN EC 81 MG TABLET PO SCH (09:00)
[2019-11-15] MEDS ORDERED: GABAPENTIN 100 MG CAPSULE PO SCH (09:00)
[2019-11-15 11:56] VITALS: BP 128/66
--- NOTE | 2019-11-15 12:17 | Discharge Plan ---
Discharge Plan Problem Reviewed?: Yes Disposition: Home, Self Care Condition: Stable Prescriptions: Clopidogrel [Plavix] 75 mg PO DAILY #15 tablet Diet: Diabetic Activity Restrictions: Activity as Tolerated Shower Restrictions: No (fall precaution) Instruction Topics: Stroke Ischemic, Clopidogrel Bisulfate Oral tablet Health Concerns: stroke Plan of Treatment: unfortunately you had stroke but your recovery is very impressive. PT/OT evaluated and treated for you, recommended you can be d/c and out-pt of PT/OT f or you. I assessed for you and saw you walk with walker at the room. Your A1C is 11.6, advise you need to have more diabetes and glucose level control, reduce glucose intake, followup with your PCP closely monitor your glucose level and adjust your insulin and diabetes medication as needed. your cholesterol level is still high as well, please take your Lipitor, reduce high cholesterol diet input, followup with your PCP for management. You tolerate dysphagia diet now, you can advance your diet as you tolerate. advise followup with neurologist as out-pt as well. Care Goals: stabilization and improvement of your medical conditions Assessment: discussed the care plan with you, you understood and agreed. Additional Instructions or Follow Up instructions: you may followup with your PCP in one week, have out-pt PT/OT, followup with neurologist as out-pt. Should your symptoms return or worsen, you may present ER or call 911 for help. Follow-Up Care: Outpatient Rehab - PT, Outpatient Rehab - OT, [facility] [place] Clinic - Diabetes Ed No Smoking: If you smoke, Please STOP! Call for help.
--- NOTE | 2019-11-15 12:38 | DISCHARGE SUMMARY ---
Discharge Summary Admit Date: 11/14/19 Discharge Date: 11/15/19 Discharging Provider: Harsha Mitchell Condition at Discharge: Stable Discharge Disposition: 01 Home, Self Care Discharge Facility Name: home - DIAGNOSES Discharge Diagnoses with Status of Each Condition: (1) Stroke MRI of the brain show patient had acute or subacute stroke. CTA of neck and brain, echo all are unremarkable. Patient's symptoms was improved and recover fast. I saw patient walk with walker in the room. Patient has no swallowing or speech problem. Physical therapist and occupational therapist evaluated and treated the patient, recommended pt can be d/c and recommended outpatient PT and OT for patient. Patient is prescribed aspirin plus Plavix and Lipitor. followup with neurologist as out-pt (2) Type 2 diabetes mellitus Patient's A1c 11.6, Patient has significant hyperglycemia when she was admitted. Discussed with patient how to control her hyperglycemia, also advise pt followup with her PCP continue management of her DM, her glucose need more strong control. pt understood that. (3) HTN (hypertension) stable (4) HLD (hyperlipidemia) continue lipitor 80mg daily. Patient still has elevated cholesterol level. Advised patient follow-up with PCP to continue manage (5) Asthma Stable (6) Peripheral neuropathy stable. - HPI History of Present Illness: This is a 64-years old female with a past medical history significant for Hypertension, hyperlipidemia, asthma, migraines, Peripheral neuropathy, type II diabetic, GERD, Who presented ER complaint left-sided weakness and numbness. She report Monday yesterday about 2:30 AM, she found herself left-sided weakness and feel also numbness. When she tried to go to the bathroom she cannot walk, she needed her to give her walker. Now she feels some recover and better, strength is better and she can barely walk. She denies history of stroke. She denies headache and vision change. Her CTA of head and neck was unremarkable. Routine laboratory tests do show she has hyperglycemia with a sugar 430. She had elevated blood pressure in the beginning, Otherwise she is hemodynamic stable. Patient is admitted for stroke evaluation and treatment. Discussed the care goal with the patient, patient clearly stated she want to have DNR/DNI - HOSPITAL COURSE Hospital Course: Patient was admitted for left-sided weakness. Patient's stoke symptoms was last 35 hours before pt present at ER. Patient was not candidate for TPA. Patient symptoms already had significantly recover when she was at admission. Patient continue to have impressively good recovery. Patient has no issue for swallowing and speech. Physical therapist and occupational therapist evaluated and treated the patient, recommended patient can be discharged and recommended patient had out-patient physical therapist and occupational therapist. I personally see the patient walk with a walker in the pt's room. Patient was also advised to have strict strong control of her glucose level. she had A1C 11.6. Advised patient follow-up with her PCP, neurologist as outpatient - ALLERGIES Allergies/Adverse Reactions: Allergies Allergy/AdvReac Type Severity Reaction Status Date / Time Sulfa (Sulfonamide Allergy Rash Verified 11/14/19 10:58 Antibiotics) - MEDICATIONS Home Medications: Ambulatory Orders Medication Instructions Recorded Confirmed Albuterol Oral Soln 2 mg PO Q6H PRN 11/14/19 11/14/19 Albuterol Sulfate [Proair Hfa 1 - 2 puffs INH Q4H PRN 11/14/19 11/14/19 Inhaler] Aspirin 81 mg PO DAILY 11/14/19 11/14/19 Atorvastatin Calcium [Lipitor] 80 mg PO DAILY 11/14/19 11/14/19 Dulaglutide [Trulicity] 1.5 mg SQ OAW 11/14/19 11/14/19 Empagliflozin [Jardiance] 25 mg PO DAILY 11/14/19 11/14/19 Fenofibrate,Micronized 130 mg PO DAILY 11/14/19 11/14/19 [Fenofibrate] Fluticasone Propionate [Flovent 250 mcg IH BID PRN 11/14/19 11/14/19 Diskus] Gabapentin 100 mg PO DAILY 11/14/19 11/14/19 Gabapentin 300 mg PO DAILY PM 11/14/19 11/14/19 Insulin Regular, Human [Humulin R] 30 units SQ AC 11/14/19 11/14/19 Leflunomide 20 mg PO DAILY 11/14/19 11/14/19 Lisinopril [Prinivil] 10 mg PO DAILY 11/14/19 11/14/19 Montelukast [Singulair] 10 mg PO QPM 11/14/19 11/14/19 Omeprazole 20 mg PO DAILY 11/14/19 11/14/19 Secukinumab [Cosentyx Pen] 150 mg SQ ONCE 11/14/19 11/14/19 metFORMIN [Glucophage] 1,000 mg PO BIDWM 11/14/19 11/14/19 Clopidogrel [Plavix] 75 mg PO DAILY #15 tablet 11/15/19 - PHYSICAL EXAM AT DISCHARGE General Appearance: positive: No acute distress, Alert. negative: Lethargic Eyes Bilateral: positive: Normal inspection, PERRL, No lid inflammation ENT: positive: ENT inspection nml, Pharynx nml, No signs of dehydration. negative: Purulent nasal drainage Neck: positive: Nml inspection, Thyroid nml, Trachea midline. negative: Thyromegaly, Stiff neck, Tracheal deviation Respiratory: positive: Chest non-tender, No respiratory distress, Breath sounds nml. negative: Wheezes, Rales, Rhonchi Cardiovascular: positive: Regular rate & rhythm, No murmur. negative: Irregularly irregular, Tachycardia, Bradycardia, Systolic murmur, Diastolic murmur Peripheral Pulses: positive: 2+ Abdomen: positive: Non-tender, No organomegaly, Nml bowel sounds, No distention. negative: Tenderness, Guarding, Rebound Back: positive: Nml inspection. negative: CVA tenderness (R), CVA tenderness (L) Skin: positive: Color nml, No rash, Warm, Dry. negative: Cyanosis, Diaphoresis, Pallor Extremities: positive: Non-tender, Nml appearance, Other (pt can walk with walker.). negative: Calf tenderness, Ashley's sign/cords Neurologic/Psychiatric: positive: Oriented x3, Sensation nml, Mood/affect nml, Weakness. negative: Sensory loss, Facial droop, Slurred/abnml speech, Depressed mood/affect - LABS Result Diagrams: 11/15/19 05:20 11/15/19 05:20 - SEPSIS Current Stage of Sepsis: Ruled out - FOLLOW UP Follow Up: unfortunately you had stroke but your recovery is very impressive. PT/OT evaluated and treated for you, recommended you can be d/c and out-pt of PT/OT for you. I assessed for you and saw you walk with walker at the room. Your A1C is 11.6, advise you need to have more diabetes and glucose level control, reduce glucose intake, followup with your PCP closely monitor your glucose level and adjust your insulin and diabetes medication as needed. your cholesterol level is still high as well, please take your Lipitor, reduce high cholesterol diet input, followup with your PCP for management. You tolerate dysphagia diet now, you can advance your diet as you tolerate. advise followup with neurologist as out-pt as well. you may followup with your PCP in one week, have out-pt PT/OT, followup with neurologist as out-pt. Should your symptoms return or worsen, you may present ER or call 911 for help. - TIME SPENT Time Spent in Discharge (Minutes): 30
[2019-11-15] MEDS ORDERED: BUDESONIDE 0.5 MG/2 ML NEB INH SCH (19:00)
== END 2019-11-15 13:15 | disposition home or self-care (01) | DRG 65 ==
LOC: ED 10:45 → MS2 13:16
PROVIDERS: ADMIT Specialist; ATTEND Nurse Practitioner Gerontology
DX: I63.9 Cerebral infarction, unspecified (principal); G81.94 Hemiplegia, unspecified affecting left nondominant side; I10 Essential (primary) hypertension; R29.705 NIHSS score 5; E11.65 Type 2 diabetes mellitus with hyperglycemia; E78.00 Pure hypercholesterolemia, unspecified; E11.42 Type 2 diabetes mellitus with diabetic polyneuropathy; Z79.4 Long term (current) use of insulin; J45.909 Unspecified asthma, uncomplicated; E78.5 Hyperlipidemia, unspecified; K21.9 Gastro-esophageal reflux disease without esophagitis; R47.81 Slurred speech; Z66 Do not resuscitate
CPT/HCPCS: 36415; 70496; 70498; 70551; 80053; 80061; 81003; 83036; 83690; 84484; 85025; 92610; 93005; 93306; 97162; 97165; 99285; A9270; J1815; Q9967; 81001; 83721; 87086

== ENCOUNTER 2020-04-24 08:00 | Outpatient (CLI) | payer MEDICARE, OTHER | END 2020-05-26 23:59 | disposition home or self-care (01) | LOC: LAB.N 08:00 | PROVIDERS: ATTEND Family Medicine | DX: L02.212 Cutaneous abscess of back [any part, except buttock and flank] (principal) | CPT/HCPCS: 81599; 87070; 87075; 87147; 87186; 87205 ==

== ENCOUNTER 2020-09-24 12:30 | Outpatient (CLI) | payer MEDICARE, OTHER ==
--- NOTE | 2020-09-25 10:50 | Mammography Report ---
BILATERAL DIGITAL SCREENING MAMMOGRAM 3D/2D: 09/24/2020 CLINICAL: Routine screening. Comparison is made to exams dated: 09/17/2019 mammogram, 03/22/2018 mammogram, 02/23/2017 mammogram, 03/02/2015 mammogram, and 11/12/2014 mammogram - [facility]. There are scattered fibr oglandular elements in both breasts. No significant masses, calcifications, or other findings are seen in either breast. There has been no significant interval change. IMPRESSION: NEGATIVE There is no mammographic evidence of malignancy. A 1 year screening mammogram is recommended. This exam was interpreted at Station ID: [id number]. NOTE: For mammograms, a report in lay terms will be sent to the patient. Approximately 15% of breast malignancies will not be visualized mammographically. In the management of a palpable breast mass, a negative mammogram must not discourage biopsy of a clinically suspicious lesion. Electronically Signed By: Jorge Oro M.D. ddp/penrad:09/24/2020 13:39:29 ACR BI-RADS Category 1: Negative [id number] PARENCHYMAL PATTERN: (A) - The breast(s) demonstrate(s) scattered fibroglandular densities. BI-RADS CATEGORY: (1) - 1 RECOMMENDATION: (ANNUAL) - Recommend routine annual screening mammography. [id number] 1 year screening LATERALITY: (B)
== END 2020-09-24 12:31 | disposition home or self-care (01) ==
LOC: DI.N 12:30
DX: Z12.31 Encounter for screening mammogram for malignant neoplasm of breast (principal)

== ENCOUNTER 2021-08-23 09:20 | Outpatient (CLI) | payer MEDICARE, OTHER ==
[2021-08-23 12:21] LABS: ALBUMIN 3.8 g/dL (3.2-5.5); ALBUMIN/GLOBULIN RATIO 1.1 (1.0-2.2); ALKALINE PHOSPHATASE 51 IU/L (42-121); ALT ALANINE AMINOTRANSFERASE 108 IU/L (10-60); AST ASPARTATE AMINOTRANSFERASE 77 IU/L (10-42); BILIRUBIN,TOTAL 0.8 mg/dL (0.2-1.0); BUN - BLOOD UREA NITROGEN 32 mg/dL (6-20); CALCIUM 9.7 mg/dL (8.5-10.3); CARBON DIOXIDE - CO2 21 mmol/L (21-32); CHLORIDE 111 mmol/L (101-111); CHOL/HDL RATIO 2.9 (<4.4); CHOLESTEROL 103 mg/dL; CREATININE 0.9 mg/dL (0.4-1.0); GFR - MDRD 62 (>89); GLUCOSE 179 mg/dL (70-100); HDL CHOLESTEROL 36 mg/dL; LDL CHOLESTEROL,CALCULATED 30 mg/dL; LDL/HDL RATIO 0.8 (<4.4); POTASSIUM 4.2 mmol/L (3.5-5.0); SODIUM 143 mmol/L (135-145); TOTAL PROTEIN 7.3 g/dL (6.7-8.2); TRIGLYCERIDES 186 mg/dL; VLDL CHOLESTEROL 37 mg/dL
[2021-08-23 12:42] LABS: CREATININE,URINE 106.5 mg/dL; MICROALBUM/CREATININE RATIO,UR 464.8 ug/mg (<30.0); MICROALBUMIN,URINE 49.5 mg/dL (0-300.0)
[2021-08-23 13:38] LABS: ESTIMATED AVERAGE GLUCOSE 226 mg/dL (70-100); HEMOGLOBIN A1c% 9.5 % (4.27-6.07)
== END 2021-08-23 09:21 | disposition home or self-care (01) ==
LOC: LAB.N 09:20
PROVIDERS: ATTEND Internal Medicine
DX: E78.00 Pure hypercholesterolemia, unspecified (principal); E11.42 Type 2 diabetes mellitus with diabetic polyneuropathy
CPT/HCPCS: 36415; 80053; 80061; 82043; 82570; 83036; 83721

== ENCOUNTER 2021-11-04 06:28 | Day surgery (SDC) | payer MEDICARE, OTHER ==
[~2021-11-04 06:28] MED LIST: CYCLOPENTOLATE 1% OPHTH DROPS 2 ML ONE; KETOROLAC 0.45% OPHTH DROPS ONE; PHENYLEPHRINE 2.5% OPHTH 2 ML DROPS ONE; PROPARACAINE 0.5% OPHTH DROPS 15 ML ONE
[2021-11-04] MEDS ORDERED: LACTATED RINGERS 1,000 ML IV ONE (06:31)
[2021-11-04] MEDS ORDERED: TRIAMCIN/MOXIFLOX OPHTHALMIC 0.6 ML VIAL IO ONE ×3 (07:07→11:09)
[2021-11-04] MEDS ORDERED: BRIMONIDINE 0.2% OPHTH DROPS 5 ML ONE (07:08)
[2021-11-04] MEDS ORDERED: EPINEPHrine 1 MG/ML AMP ONE (07:08)
[2021-11-04] MEDS ORDERED: TIMOLOL 0.5% OPHTH DROPS ONE (07:08)
[2021-11-04] MEDS ORDERED: VANCOMYCIN OPHTH (TOPICAL) 10 MG/ML SYRINGE ONE (07:09)
[2021-11-04] MEDS ORDERED: BSS/LIDOCAINE/EPINEPHRINE 1 ML VIAL ONE (07:09)
--- NOTE | 2021-11-04 07:09 | ANESTHESIA ---
Pre-Anesthesia VS, & Labs - Diagnosis LEFT CATARACT - Procedure LEFT CATARACT EXTRACTION WITH LENS IMPLANT Vital Signs: Temp Pulse Resp BP Pulse Ox 36.3 C L 93 16 148/69 H 99 11/04/21 06:36 11/04/21 06:36 11/04/21 06:36 11/04/21 06:36 11/04/21 06:36 Height: 5 ft 3 in Weight (kg): 76 kg Body Mass Index: 29.7 BMI Classification: Overweight - NPO >8 hours - Is Patient ?: No - Lab Results Current Lab Results: Laboratory Tests 11/04/21 06:52: POC Whole Bld Glucose 152 H Home Medications and Allergies Home Medications: Ambulatory Orders Insulin Glargine [Lantus Solostar] 15 unit SQ DAILY 10/25/21 Albuterol Sulfate [Proair Hfa Inhaler] 1 - 2 puffs INH Q4H PRN 11/14/19 Atorvastatin Calcium [Lipitor] 80 mg PO DAILY 11/14/19 Dulaglutide [Trulicity] 3 mg SQ OAW 11/14/19 Empagliflozin [Jardiance] 25 mg PO DAILY 11/14/19 Fenofibrate,Micronized [Fenofibrate] 130 mg PO DAILY 11/14/19 Fluticasone Propionate [Flovent Diskus] 250 mcg IH BID PRN 11/14/19 Gabapentin 100 mg PO DAILY 11/14/19 Gabapentin 300 mg PO BID 11/14/19 Leflunomide 20 mg PO DAILY 11/14/19 Montelukast [Singulair] 10 mg PO QPM 11/14/19 Omeprazole 20 mg PO DAILY 11/14/19 Secukinumab [Cosentyx Pen] 150 mg SQ ONCE 11/14/19 lisinopriL [Prinivil] 10 mg PO DAILY 11/14/19 metFORMIN [Glucophage] 1,000 mg PO BIDWM 11/14/19 Insulin Glargine [Lantus Solostar] 15 unit SQ DAILY 10/25/21 Allergies/Adverse Reactions: Allergies Allergy/AdvReac Type Severity Reaction Status Date / Time Raisin [Raisins] Allergy Unknown Verified 11/19/19 12:36 Sulfa (Sulfonamide Allergy Rash Verified 11/14/19 10:58 Antibiotics) Anes History & Medical History - Anesthetic History Anesthesia Complications: reports: No previous complications Family history of Anesthesia Complications: Denies Family history of Malignant Hyperthermia: Denies - Medical History Cardiovascular: reports: Hypertension, High cholesterol Pulmonary: reports: Asthma, Pneumonia Gastrointestinal: reports: GERD (WELL CONTROLLED ON MEDS) Neuro: reports: CVA (2020; MILD RESIDUAL WEAKNESS), Migraines, Peripheral neuropathy Musculoskeletal: reports: Osteoarthritis, Fibromyalgia, Osteoporosis Endocrine/Autoimmune: reports: Type 2 diabetes Blood Disorders: reports: None Skin: reports: Psoriasis Smoking Status: Never smoker Psychosocial: reports: No issues indicated History of Cancer?: No - Surgical History Gynecologic: reports: section Orthopedic: reports: Carpal Tunnel surgery, Other Exam General: Alert, Oriented x3 Dental: WNL Mouth Openin Fingerbreadth Neck Mobility: Normal Mallampati classification: II Thyromental Distance: 4-6 cm Respiratory: Lungs clear Cardiovascular: Regular rate Mental/Cognitive Status: Alert/Oriented X3, Normal for patient Cognitive Status: Within normal limits Plan Anesthesia Type: General, MAC Consent for Procedure(s) Verified and Reviewed: Yes Code Status: Attempt Resuscitation ASA classification: 2-Mild systemic disease Is this case an emergency?: No
[2021-11-04] MEDS ORDERED: PROPARACAINE 0.5% OPHTH DROPS 15 ML EACHEYE ONE (07:25)
[2021-11-04] MEDS ORDERED: MIDAZOLAM 2 MG/2 ML VIAL ONE (07:36)
[2021-11-04] MEDS ORDERED: BRIMONIDINE 0.2% OPHTH DROPS 5 ML OPTH ONE (07:38)
[2021-11-04] MEDS ORDERED: VANCOMYCIN OPHTH (TOPICAL) 10 MG/ML SYRINGE TOP ONE (07:39)
[2021-11-04] MEDS ORDERED: EPINEPHrine 1 MG/ML AMP IR ONE (07:39)
[2021-11-04] MEDS ORDERED: BSS/LIDOCAINE/EPINEPHRINE 1 ML SYRINGE IO ONE (07:39)
[2021-11-04] MEDS ORDERED: TIMOLOL 0.5% OPHTH DROPS OPTH ONE (07:39)
[2021-11-04] MEDS ORDERED: LACTATED RINGERS 800 ML IV ONE (07:45)
[2021-11-04 07:58] VITALS: BP 130/64
--- NOTE | 2021-11-04 08:29 | OPERATIVE REPORT ---
Operative Report - Other Other Information/Narrative: Date of Surgery: 11/04/21 Preop Dx: Visually significant cataract left eye. This was the first cataract surgery. Postop Dx: Same Procedure: Phacoemulsification with posterior chamber intraocular lens implant left eye Surgeon: Dr. Ming Paris Anesthesia: Monitored anesthesia care Complications: None Operative Indications: This is a 66-year-old F with progressive vision loss in the left eye due to 2-3+ nuclear sclerotic, 1+ posterior subcapsular, and vacuolar cataract. Best corrected visual acuity was 20/30 with glare to hand motion vision in the left eye. Indications for surgery were: - Overall decrease in vision - Difficulty seeing words on a computer screen - Difficulty reading - Difficulty seeing words, closed captions, or game scores on TV - Difficulty seeing street signs - Difficulty driving in low light or at night - Difficulty driving at night because of headlights from other vehicles - Difficulty with glare or bright lights in any situation The patient was consented at length concerning the risks and benefits of cataract surgery after which the patient expressed a desire to proceed with surgery. Operative Procedure: The patient was taken into OR#3 and placed under monitored anesthesia care. A surgical time-out was conducted confirming correct patient, correct procedure, and correct surgical site. The patient was given topical anesthesia and then prepped and draped in the usual sterile fashion. The eye was entered at the 6 and 3 oclock positions. Intracameral Shugarcaine was injected into the anterior chamber followed by a dispersive viscoelastic. A continuous-tear curvilinear capsulorhexis was performed. The nucleus was hy drodissected and phacoemulsified. The cortex was evacuated using automated infusion and aspiration. A cohesive viscoelastic was injected into the capsular bag and a 17.0 diopter intraocular lens was inserted into the bag. Infusion and aspiration were used to evacuate the viscoelastic materials from the eye. The wounds were hydrated and the eye inflated to physiologic pressure using balanced salt solution. Approximately 0.25ml of a mixture of triamcinolone and moxifloxacin was injected trans-sclerally into the vitreous in the inferotemporal quadrant using a 30 gauge cannula. An additional 0.55ml of a mixture of triamcinolone and moxifloxacin was injected subconjunctivally in the superior quadrant for infection and inflammation prophylaxis. Wound integrity was checked with Weck-Johnna sponges. The patient was taken from the operating room in good condition and given post-op instructions.
--- NOTE | 2021-11-04 14:27 | ANESTHESIA POST OP EVALUATION ---
Anesthesia Post Eval - Post Anesthesia Eval Vitals: Last Vital Signs Temp 36.0 C L 11/04/21 07:45 Pulse 95 11/04/21 07:57 Resp 16 11/04/21 07:57 BP 130/64 11/04/21 07:57 Pulse Ox 97 11/04/21 07:57 CV Function Including HR & BP: Stable Pain Control: Satisfactory Nausea & Vomiting: Negative Mental Status: Baseline Respiratory Status: Airway Patent Hydration Status: Satisfactory Anesthesia Complications: None
== END 2021-11-04 06:29 | disposition home or self-care (01) ==
LOC: SDS 06:28
PROVIDERS: ATTEND Ophthalmology
DX: E11.36 Type 2 diabetes mellitus with diabetic cataract (principal); H25.812 Combined forms of age-related cataract, left eye; J45.909 Unspecified asthma, uncomplicated; Z79.899 Other long term (current) drug therapy; Z79.4 Long term (current) use of insulin; Z79.84 Long term (current) use of oral hypoglycemic drugs; E11.42 Type 2 diabetes mellitus with diabetic polyneuropathy
CPT/HCPCS: 66984; A9270; J3490; J7120

== ENCOUNTER 2021-12-02 06:30 | Day surgery (SDC) | payer MEDICARE, OTHER ==
[2021-12-02] MEDS ORDERED: LACTATED RINGERS 1,000 ML IV ONE (06:57)
[2021-12-02] MEDS ORDERED: TRIAMCIN/MOXIFLOX OPHTHALMIC 0.6 ML VIAL IO ONE ×2 (07:14→07:48)
[2021-12-02] MEDS ORDERED: BRIMONIDINE 0.2% OPHTH DROPS 5 ML ONE (07:14)
[2021-12-02] MEDS ORDERED: EPINEPHrine 1 MG/ML AMP ONE (07:14)
[2021-12-02] MEDS ORDERED: VANCOMYCIN OPHTH (TOPICAL) 10 MG/ML SYRINGE ONE (07:15)
[2021-12-02] MEDS ORDERED: BSS/LIDOCAINE/EPINEPHRINE 1 ML VIAL ONE (07:15)
--- NOTE | 2021-12-02 07:20 | ANESTHESIA ---
Pre-Anesthesia VS, & Labs - Diagnosis R eye cataract - Procedure extraction cataract R eye Vital Signs: Temp Pulse Resp BP Pulse Ox O2 Flow Rate 36.1 C L 91 18 133/68 H 98 0 12/02/21 06:47 12/02/21 06:47 12/02/21 06:47 12/02/21 06:47 12/02/21 06:47 12/02/21 06:47 Height: 5 ft 2 in Weight (kg): 75.1 kg Body Mass Index: 30.2 BMI Classification: Obese - NPO >8 hours - Is Patient ?: No - Lab Results Lab results reviewed: Yes Home Medications and Allergies Albuterol Sulfate [Proair Hfa Inhaler] 1 - 2 puffs INH Q4H PRN 11/14/19 Atorvastatin Calcium [Lipitor] 80 mg PO DAILY 11/14/19 Dulaglutide [Trulicity] 3 mg SQ OAW 11/14/19 Empagliflozin [Jardiance] 25 mg PO DAILY 11/14/19 Fenofibrate,Micronized [Fenofibrate] 130 mg PO DAILY 11/14/19 Fluticasone Propionate [Flovent Diskus] 250 mcg IH BID PRN 11/14/19 Gabapentin 100 mg PO DAILY 11/14/19 Gabapentin 300 mg PO BID 11/14/19 Leflunomide 20 mg PO DAILY 11/14/19 Montelukast [Singulair] 10 mg PO QPM 11/14/19 Omeprazole 20 mg PO DAILY 11/14/19 Secukinumab [Cosentyx Pen] 150 mg SQ ONCE 11/14/19 lisinopriL [Prinivil] 10 mg PO DAILY 11/14/19 metFORMIN [Glucophage] 1,000 mg PO BIDWM 11/14/19 Insulin Glargine [Lantus Solostar] 15 unit SQ DAILY 10/25/21 Allergies/Adverse Reactions: Allergies Allergy/AdvReac Type Severity Reaction Status Date / Time Raisin [Raisins] Allergy Unknown Verified 12/02/21 06:53 Sulfa (Sulfonamide Allergy Rash Verified 12/02/21 06:53 Antibiotics) Anes History & Medical History - Anesthetic History Anesthesia Complications: reports: No previous complications Family history of Anesthesia Complications: Denies Family history of Malignant Hyperthermia: Denies - Medical History Cardiovascular: reports: Hypertension, High cholesterol Pulmonary: reports: Asthma, Pneumonia Gastrointestinal: reports: GERD Neuro: reports: CVA (2020; MILD RESIDUAL WEAKNESS), Migraines, Peripheral neuropathy Musculoskeletal: reports: Osteoarthritis, Fibromyalgia, Osteoporosis Endocrine/Autoimmune: reports: Type 2 diabetes Blood Disorders: reports: None Skin: reports: Psoriasis Smoking Status: Never smoker - Surgical History Eyes Ears Nose Throat (EENT): reports: Cataracts Gynecologic: reports: section Orthopedic: reports: Carpal Tunnel surgery, Other Exam General: Alert, Oriented x3, Cooperative Dental: WNL Mouth Openin Fingerbreadth Neck Mobility: Normal Mallampati classification: II Thyromental Distance: 4-6 cm Respiratory: Lungs clear, Normal breath sounds, No respiratory distress Cardiovascular: Regular rate Mental/Cognitive Status: Alert/Oriented X3, Normal for patient Cognitive Status: Within normal limits Plan Anesthesia Type: MAC Consent for Procedure(s) Verified and Reviewed: Yes Code Status: Attempt Resuscitation ASA classification: 2-Mild systemic disease Is this case an emergency?: No
[2021-12-02] MEDS ORDERED: timoloL maleate 0.5% OPHTH DROPS (10ML) ONE (07:30)
[2021-12-02] MEDS ORDERED: MIDAZOLAM 2 MG/2 ML VIAL ONE (07:31)
[2021-12-02] MEDS ORDERED: BRIMONIDINE 0.2% OPHTH DROPS 5 ML OPTH ONE (07:42)
[2021-12-02] MEDS ORDERED: TIMOLOL 0.5% OPHTH DROPS OPTH ONE (07:47)
[2021-12-02] MEDS ORDERED: EPINEPHrine 1 MG/ML AMP IR ONE (07:47)
[2021-12-02] MEDS ORDERED: BSS/LIDOCAINE/EPINEPHRINE 1 ML SYRINGE IO ONE (07:48)
[2021-12-02] MEDS ORDERED: PROPARACAINE 0.5% OPHTH DROPS 15 ML RIGHTEYE ONE (07:48)
[2021-12-02] MEDS ORDERED: VANCOMYCIN OPHTH (TOPICAL) 10 MG/ML SYRINGE TOP ONE (07:49)
--- NOTE | 2021-12-02 07:51 | OPERATIVE REPORT ---
Operative Report - Other Other Information/Narrative: Date of Surgery: 12/02/21 Preop Dx: Visually significant cataract right eye. Cataract surgery was performed in the left eye on . Postop Dx: Same Procedure: Phacoemulsification with posterior chamber intraocular lens implant right eye Surgeon: Dr. Ming Paris Anesthesia: Monitored anesthesia care Complications: None Operative Indications: This is a 66-year-old F with progressive vision loss in the right eye due to 2-3+ nuclear sclerotic, 1+ posterior subcapsular, and vacuolar cataract. Best corrected visual acuity was 20/40 with glare to light perception vision in the right eye. Indications for surgery were: - Overall decrease in vision - Difficulty seeing words on a computer screen - Difficulty reading - Difficulty seeing words, closed captions, or game scores on TV - Difficulty seeing street signs - Difficulty driving in low light or at night The patient was consented at length concerning the risks and benefits of cat aract surgery after which the patient expressed a desire to proceed with surgery. Operative Procedure: The patient was taken into OR#3 and placed under monitored anesthesia care. A surgical time-out was conducted confirming correct patient, correct procedure, and correct surgical site. The patient was given topical anesthesia and then prepped and draped in the usual sterile fashion. The eye was entered at the 6 and 3 oclock positions. Intracameral Shugarcaine was injected into the anterior chamber followed by a dispersive viscoelastic. A continuous-tear curvilinear capsulorhexis was performed. The nucleus was hydrodissected and phacoemulsified. The cortex was evacuated using automated infusion and aspiration. A cohesive viscoelastic was injected into the capsular bag and a 17.5 diopter intraocular lens was inserted into the bag. Infusion and aspiration were used to evacuate the viscoelastic materials from the eye. The wounds were hydrated and the eye inflated to physiologic pressure using balanced salt solution. Approximately 0.25ml of a mixture of triamcinolone and moxifloxacin was injected trans-sclerally into the vitreous in the inferotempora l quadrant using a 30 gauge cannula. An additional 0.55ml of a mixture of triamcinolone and moxifloxacin was injected subconjunctivally in the superior quadrant for infection and inflammation prophylaxis. Wound integrity was checked with Weck-Johnna sponges. The patient was taken from the operating room in good condition and given post-op instructions.
[2021-12-02 07:58] VITALS: BP 123/66
[2021-12-02] MEDS ORDERED: LACTATED RINGERS 800 ML IV ONE (08:16)
--- NOTE | 2021-12-02 08:24 | ANESTHESIA POST OP EVALUATION ---
Anesthesia Post Eval - Post Anesthesia Eval Vitals: Last Vital Signs Temp 36.2 C L 12/02/21 07:57 Pulse 95 12/02/21 07:57 Resp 18 12/02/21 07:57 BP 123/66 12/02/21 07:57 Pulse Ox 100 12/02/21 07:57 O2 Flow Rate 0 12/02/21 06:47 CV Function Including HR & BP: Stable Pain Control: Satisfactory Nausea & Vomiting: Negative Mental Status: Baseline Respiratory Status: Airway Patent Hydration Status: Satisfactory Anesthesia Complications: None
== END 2021-12-02 06:31 | disposition home or self-care (01) ==
LOC: SDS 06:30
PROVIDERS: ATTEND Ophthalmology
DX: E11.36 Type 2 diabetes mellitus with diabetic cataract (principal); H25.811 Combined forms of age-related cataract, right eye; Z79.84 Long term (current) use of oral hypoglycemic drugs; Z79.4 Long term (current) use of insulin; Z98.42 Cataract extraction status, left eye; E66.9 Obesity, unspecified; Z68.30 Body mass index [BMI] 30.0-30.9, adult; J45.909 Unspecified asthma, uncomplicated
CPT/HCPCS: 66984; A9270; J3490; J7120

== ENCOUNTER 2021-12-15 10:00 | Outpatient (CLI) | payer MEDICARE, OTHER ==
[2021-12-15 11:54] LABS: BASOPHILS % (AUTO) 0.6 %; EOSINOPHILS # (AUTO) 0.1 10^3/uL (0.0-0.7); EOSINOPHILS % (AUTO) 1.7 %; HCT - HEMATOCRIT 42.3 % (37.0-47.0); HGB - HEMOGLOBIN 13.5 g/dL (12.0-16.0); LYMPHOCYTES # (AUTO) 1.7 10^3/uL (1.5-3.5); LYMPHOCYTES % (AUTO) 31.7 %; MEAN CORPUSCULAR HEMOGLOBIN 29.7 pg (27.0-31.0); MEAN CORPUSCULAR HGB CONC 31.9 g/dL (32.0-36.0); MEAN CORPUSCULAR VOLUME 93.2 fL (81.0-99.0); MEAN PLATELET VOLUME 10.5 fL (7.9-10.8); MONOCYTES # (AUTO) 0.5 10^3/uL (0.0-1.0); MONOCYTES % (AUTO) 8.4 %; NEUTROPHILS # (AUTO) 3.1 10^3/uL (1.5-6.6); NEUTROPHILS % (AUTO) 57.2 %; PLT - PLATELET COUNT 149 10^3/uL (130-450); RED BLOOD COUNT 4.54 10^6/uL (4.20-5.40); RED CELL DISTRIBUTION WIDTH 12.7 % (12.0-15.0); WHITE BLOOD COUNT 5.3 x10^3/uL (4.8-10.8)
[2021-12-15 12:23] LABS: ALBUMIN 3.9 g/dL (3.2-5.5); ALKALINE PHOSPHATASE 87 IU/L (42-121); ALT ALANINE AMINOTRANSFERASE 17 IU/L (10-60); AST ASPARTATE AMINOTRANSFERASE 22 IU/L (10-42); BILIRUBIN,TOTAL 0.5 mg/dL (0.2-1.0); BUN - BLOOD UREA NITROGEN 28 mg/dL (6-20); CALCIUM 9.5 mg/dL (8.5-10.3); CARBON DIOXIDE - CO2 25 mmol/L (21-32); CHLORIDE 109 mmol/L (101-111); CHOL/HDL RATIO 4.4 (<4.4); CHOLESTEROL 222 mg/dL; CREATININE 1.3 mg/dL (0.4-1.0); GFR - MDRD 41 (>89); GLUCOSE 187 mg/dL (70-100); HDL CHOLESTEROL 50 mg/dL; LDL CHOLESTEROL,CALCULATED 135 mg/dL; LDL/HDL RATIO 2.7 (<4.4); POTASSIUM 4.3 mmol/L (3.5-5.0); SODIUM 141 mmol/L (135-145); TOTAL PROTEIN 7.7 g/dL (6.7-8.2); TRIGLYCERIDES 184 mg/dL; VLDL CHOLESTEROL 37 mg/dL
[2021-12-15 12:51] LABS: ESTIMATED AVERAGE GLUCOSE 174 mg/dL (70-100); HEMOGLOBIN A1c% 7.7 % (4.27-6.07)
[2021-12-15 13:22] LABS: MICROALBUM/CREATININE RATIO,UR 180.9 ug/mg (<30.0)
== END 2021-12-15 10:01 | disposition home or self-care (01) ==
LOC: LAB.N 10:00
PROVIDERS: ATTEND Internal Medicine
DX: E78.00 Pure hypercholesterolemia, unspecified (principal); E11.42 Type 2 diabetes mellitus with diabetic polyneuropathy; R79.89 Other specified abnormal findings of blood chemistry
CPT/HCPCS: 36415; 80053; 80061; 82043; 82570; 83036; 83721; 85025

== ENCOUNTER 2022-02-28 08:26 | Outpatient (CLI) | payer MEDICARE, OTHER ==
[2022-02-28 11:50] LABS: BASOPHILS % (AUTO) 0.8 %; EOSINOPHILS # (AUTO) 0.1 10^3/uL (0.0-0.7); EOSINOPHILS % (AUTO) 2.7 %; HCT - HEMATOCRIT 40.8 % (37.0-47.0); HGB - HEMOGLOBIN 13.3 g/dL (12.0-16.0); LYMPHOCYTES % (AUTO) 38.7 %; MEAN CORPUSCULAR HEMOGLOBIN 30.2 pg (27.0-31.0); MEAN CORPUSCULAR HGB CONC 32.6 g/dL (32.0-36.0); MEAN CORPUSCULAR VOLUME 92.5 fL (81.0-99.0); MONOCYTES # (AUTO) 0.5 10^3/uL (0.0-1.0); MONOCYTES % (AUTO) 8.6 %; NEUTROPHILS # (AUTO) 2.6 10^3/uL (1.5-6.6); PLT - PLATELET COUNT 175 10^3/uL (130-450); RED BLOOD COUNT 4.41 10^6/uL (4.20-5.40); RED CELL DISTRIBUTION WIDTH 12.9 % (12.0-15.0); WHITE BLOOD COUNT 5.2 x10^3/uL (4.8-10.8)
[2022-02-28 12:29] LABS: ALBUMIN 3.5 g/dL (3.2-5.5); ALBUMIN/GLOBULIN RATIO 0.9 (1.0-2.2); ALKALINE PHOSPHATASE 90 IU/L (42-121); ALT ALANINE AMINOTRANSFERASE 14 IU/L (10-60); AST ASPARTATE AMINOTRANSFERASE 16 IU/L (10-42); BILIRUBIN,TOTAL 0.7 mg/dL (0.2-1.0); BUN - BLOOD UREA NITROGEN 30 mg/dL (6-20); CALCIUM 9.3 mg/dL (8.5-10.3); CARBON DIOXIDE - CO2 24 mmol/L (21-32); CHLORIDE 107 mmol/L (101-111); CHOLESTEROL 282 mg/dL; GFR - MDRD 55 (>89); GLUCOSE 198 mg/dL (70-100); HDL CHOLESTEROL 47 mg/dL; LDL CHOLESTEROL,CALCULATED 195 mg/dL; LDL/HDL RATIO 4.1 (<4.4); POTASSIUM 3.9 mmol/L (3.5-5.0); SODIUM 140 mmol/L (135-145); TOTAL PROTEIN 7.2 g/dL (6.7-8.2); TRIGLYCERIDES 199 mg/dL; VLDL CHOLESTEROL 40 mg/dL
[2022-02-28 14:00] LABS: ESTIMATED AVERAGE GLUCOSE 166 mg/dL (70-100); HEMOGLOBIN A1c% 7.4 % (4.27-6.07)
== END 2022-02-28 08:27 | disposition home or self-care (01) ==
LOC: LAB.N 08:26
PROVIDERS: ATTEND Internal Medicine
DX: E11.42 Type 2 diabetes mellitus with diabetic polyneuropathy (principal); E78.00 Pure hypercholesterolemia, unspecified; I10 Essential (primary) hypertension
CPT/HCPCS: 36415; 80053; 80061; 83036; 83721; 85025

== ENCOUNTER 2023-01-09 10:48 | Outpatient (CLI) | payer MEDICARE, OTHER ==
--- NOTE | 2023-01-10 13:30 | Mammography Report ---
BILATERAL DIGITAL SCREENING MAMMOGRAM 3D/2D: 01/09/2023 CLINICAL: Routine screening. Family history of breast cancer. Comparison is made to exams dated: 10/06/2021 mammogram, 09/24/2020 mammogram, 09/17/2019 mammogram, mammogram, 02/23/2017 mammogram, and 01/01/2016 mammogram - [facility]. There are scattered areas of fibroglandular density in both breasts (category b / 25%-50% glandular t issue). No significant masses, calcifications, or other findings are seen in either breast. There has been no significant interval change. IMPRESSION: NEGATIVE There is no mammographic evidence of malignancy. A 1 year screening mammogram is recommended. Based on the Tyrer Cuzick model (a risk assessment model) the patients lifetime risk is 13.1% and he r 10 year risk is 7.8%. According to the ACR, ACS, and NCCN guidelines, an annual breast MRI exam brennan ng with mammogram is recommended if the patients lifetime risk is 20% or greater. This exam was interpreted at Station ID: [id number]. NOTE: For mammograms, a report in lay terms will be sent to the patient. Approximately 15% of breast malignancies will not be visualized mammographically. In the management of a palpable breast mass, a negative mammogram must not discourage biopsy of a clinically suspicious lesion. Electronically Signed By: Maxim [email or web address]:01/09/2023 12:29:36 letter sent: No_Letter ACR BI-RADS Category 1: Negative 3341F PARENCHYMAL PATTERN: (A) - The breast(s) demonstrate(s) scattered fibroglandular densities. BI-RADS CATEGORY: (1) - 1 Mammogram [id number] 1 year screening LATERALITY: (B)
== END 2023-01-09 10:49 | disposition home or self-care (01) ==
LOC: DI.N 10:48
PROVIDERS: ATTEND Internal Medicine
DX: Z12.31 Encounter for screening mammogram for malignant neoplasm of breast (principal); R92.323 Mammographic fibroglandular density, bilateral breasts

== ENCOUNTER 2023-11-08 08:00 | Outpatient (CLI) | payer MEDICARE, OTHER | END 2023-11-08 23:59 | disposition home or self-care (01) | LOC: LAB.N 08:00 | PROVIDERS: ATTEND Physician Assistant Medical | DX: J06.9 Acute upper respiratory infection, unspecified (principal) ==